=== PATIENT | female | born 1985 | race Caucasian/White ===

== ENCOUNTER 2017-02-19 04:38 | Inpatient (IN) | payer BC, MEDICAID ==
[2017-02-19] VITALS (20 sets, daily range): BP systolic 107–133; BP diastolic 58–96; PULSE 74–112; RESP 16–18; TEMP 97.7
[~2017-02-19] VITALS: Ht 165.1 cm; Wt 87.5 kg
--- NOTE | 2017-02-19 05:35 | PD ---
HPI Chief Complaint contractions Date Seen: Feb 19, 2017 Time Seen: 05:27 Travel History International Travel<30 Days: No Contact w/Intl Traveler<30Days: No Known Affected Area: No History of Present Illness HPI 31 yo at 39w 3d who arrives due to contractions that began 10pm last night. Became a little more frequent this morning. Denies ROM, vaginal bleeding. Good movement. Cervix was 3 cm 10 days ago. GBS negative. Patient has been given the OK to attempt a Para: 1 : 2 History Past Medical History Medical History: Denies Significant Hx Obstetric History Obstetric History Past Surgical History Narrative Surgical Family History Family History: Negative Social History Alcohol Use: No Tobacco Use: No Substance Abuse: No Review of Systems Except as stated in HPI: all other systems reviewed are Neg Physical Exam Narrative GENERAL: Well-nourished, well-developed patient. SKIN: Warm and dry. HEAD: Normocephalic and atraumatic. EYES: No scleral icterus. No injection or drainage. ENT: No nasal drainage noted. Mucous membranes pink. Airway patent. NECK: Supple, trachea midline. No JVD. CARDIOVASCULAR: Regular rate and rhythm without murmurs, gallops, or rubs. RESPIRATORY: Breath sounds equal bilaterally. No accessory muscle use. BREASTS: Bilateral exam showed no masses , no retractions, no nipple discharge. ABDOMEN/GI: Abdomen soft, non-tender, bowel sounds present, no rebound, no guarding Gravid to [38-] weeks size Fundal Height: [-] GENITOURINARY: External Genitalia: intact and normal in appearance BUS glands: [-nl] Cervix: [-mid] Dilatation: [-4-5] Effacement: [-90] Station: [--2] Presentation: [-vtx] Membranes: [intact] Uterine Contractions: [q10min-] FHT's: Category: [1-] Baseline: [-145] Reactive: [mod-] Variability: [-mod] Decels: [absent-] EXTREMITIES: No cyanosis or edema. BACK: Nontender without obvious deformity. No CVA tenderness. NEUROLOGICAL: Awake and alert. Motor and sensory grossly within normal limits. Five out of 5 muscle strength in all muscle groups. Normal speech. Data Data Vital Signs Reviewed: Yes [facility] Medical Record Reviewed: Yes Plan 31yo at 39-40 weeks, previous h/o here in labor For Dr Hines aware of admission Diagnosis Diagnosis: Primary Impression: 39 weeks gestation of Additional Impressions: Irregular uterine contractions Previous delivery affecting , antepartum Disposition: 01 DISCHARGE HOME Tarsha Narayanan MD Feb 19, 2017 05:35
[2017-02-19] MEDS ORDERED: LACTATED RINGER'S 1000 ML INJ 1,000 ML IV PRN (05:36)
[2017-02-19] MEDS ORDERED: LACTATED RINGER'S 1000 ML INJ 1,000 ML IV SCH (05:36)
[2017-02-19] MEDS ORDERED: PREN1CAP28 PO (05:44)
[2017-02-19] MEDS ORDERED: CITRIC ACID-SODIUM CITRATE LIQ 30 ML UDC PO SCH (05:45)
[2017-02-19] MEDS ORDERED: OXYTOCIN 30 UNITS-500ML PREMIX 500 ML IV ONE (05:45)
[2017-02-19] MEDS ORDERED: LIDOCAINE HCL 1% 50 ML VIAL I-DERMAL PRN (05:45)
[2017-02-19] MEDS ORDERED: LIDOCAINE HCL 1% 50 ML VIAL INFIL PRN (05:45)
[2017-02-19] MEDS ORDERED: SODIUM CHLORID 0.9% 500 ML INJ 500 ML IV PRN (05:45)
[2017-02-19] MEDS ORDERED: MINERAL OIL 10 ML VIAL TOPICAL PRN (05:45)
[2017-02-19] MEDS ORDERED: IRON27TA PO (05:47)
[2017-02-19 05:51] LABS: BASOPHIL # 0.1 TH/MM3 (0-0.2); BASOPHIL % 0.5 % (0.0-2.0); EOSINOPHIL # 0.1 TH/MM3 (0-0.4); EOSINOPHIL % 0.8 % (0.0-4.0); HEMATOCRIT 35.4 % (35.0-46.0); HEMO FLAGS DIFF FINAL; LYMPH % 19.3 % (9.0-44.0); LYMPHOCYTE # 2.4 TH/MM3 (1.0-4.8); MEAN CELL VOLUME 81.5 FL (80.0-100.0); MEAN CORPUSCULAR HGB CONC 33.1 % (32.0-36.0); MONO % 8.8 % (0.0-8.0); NEUT % 70.6 % (16.0-70.0); PLATELET COUNT 168 TH/MM3 (150-450); RED BLOOD COUNT 4.35 MIL/MM3 (4.00-5.30); RED CELL DISTRIBUTION WIDTH 19.6 % (11.6-17.2); WHITE BLOOD COUNT 12.7 TH/MM3 (4.0-11.0)
[2017-02-19 05:55] LABS: BLOOD, URINE NEG (NEG); GLUCOSE,URINE NEG (NEG); KETONE, URINE NEG (NEG); MUCUS URINE FEW /lpf (OCC); NITRITE,URINE NEG (NEG); PH, URINE 6.5 (5.0-8.5); SQUAMOUS EPITHELIAL CELL URINE 2 /hpf (0-5); URINE COLOR YELLOW (YELLW/STRAW)
[2017-02-19 05:56] LABS: COMMENT (UR) CATH-CULT NOT IND; CULTURE IF INDICATED CATH CULTURE NOT IND
[2017-02-19] MEDS ORDERED: SODIUM CHLOR 0.9% 1000 ML INJ 1,000 ML IV PRN (05:56)
[2017-02-19] MEDS ORDERED: fentaNYL 2MCG-BUPIV 0.125% INJ 100 ML ONE (06:18)
[2017-02-19] MEDS ORDERED: fentaNYL 2MCG-BUPIV 0.125% 100 ML EPIDURAL SCH (07:30)
[2017-02-19] MEDS ORDERED: DO NOT ADMINISTER ANTICOAGULANTS PRN (07:30)
[2017-02-19] MEDS ORDERED: ePHEDrine/NS 25 MG/5 ML SYR IV PRN (07:30)
[2017-02-19] MEDS ORDERED: NO SYSTEM NARCOTICS PRN (07:30)
[2017-02-19 09:21] LABS: RAPID PLASMA REAGIN SCREEN NON-REACTIVE (NON-REACTVE)
[2017-02-19] MEDS ORDERED: DOCUSATE SODIUM 50 MG/SENNA 8.6 MG TAB PO PRN (10:00)
[2017-02-19] MEDS ORDERED: WITCH HAZEL 50%/GLYCERIN 12.5% 40 PAD JAR TOPICAL PRN (10:00)
[2017-02-19] MEDS ORDERED: BENZOCAINE 20% TOPICAL SPRAY 60 ML CAN TOPICAL PRN (10:00)
[2017-02-19] MEDS ORDERED: ONDANSETRON ODT 4 MG TAB PO PRN (10:00)
[2017-02-19] MEDS ORDERED: ALUMINUM/MAGNESIUM/SIMETH 30 ML CUP PO PRN (10:00)
[2017-02-19] MEDS ORDERED: ZOLPIDEM TARTRATE 5 MG TAB PO PRN (10:00)
[2017-02-19] MEDS ORDERED: SODIUM CHLORIDE 0.9% FLUSH 10 ML FLUSH IV FLUSH PRN (10:00)
[2017-02-19] MEDS ORDERED: oxyCODONE/ACETAMINOPHEN 5 MG/325 MG TAB PO PRN ×2 (10:00)
--- NOTE | 2017-02-19 10:00 | PD.OB.DELI ---
Delivery Date: Feb 19, 2017 Anesthesia: Epidural Episiotomy: None Vaginal Delivery: Normal, Spontaneous, Presentation: Transverse lie (op left) Nuchal Cord: x1 Delayed cord clamping (45 sec): Yes : Male One Minute : 8 Five Minute : 8 Weight: 3335 gm Placenta: Spontaneous delivery, Intact, 3 vessel cord Laceration: Vaginal laceration Repair: Chromic running Deng Shaikh MD Feb 19, 2017 10:00
[2017-02-19] MEDS: IBUPROFEN 600 MG TAB PO PRN ×2 (11:16→17:59)
[2017-02-19] MEDS ORDERED: MEASLES, MUMPS, RUBELLA VACCINE 0.5 ML VIAL SQ ONE (16:00)
[2017-02-19] MEDS ORDERED: DIPHTH/TETANUS/ACEL PERTUSSIS (BOOSTER) 0.5 ML VIAL/PFS IM ONE (16:00)
[2017-02-19] MEDS: SODIUM CHLORIDE 0.65% NASAL SPRAY 45 ML BTL NASAL PRN (16:16)
[2017-02-19] MEDS: ACETAMINOPHEN 325 MG TAB PO PRN (20:08)
[2017-02-19] MEDS ORDERED: SODIUM CHLORIDE 0.9% FLUSH 10 ML FLUSH IV FLUSH SCH (21:00)
[2017-02-20] MEDS: IBUPROFEN 600 MG TAB PO PRN ×4 (00:38→23:17)
[2017-02-20] MEDS: ACETAMINOPHEN 325 MG TAB PO PRN ×4 (00:38→23:17)
[2017-02-20 08:00] VITALS: BP 114/69; PULSE 100; RESP 20; TEMP 97.6
[2017-02-20] MEDS: SODIUM CHLORIDE 0.65% NASAL SPRAY 45 ML BTL NASAL PRN (08:10)
--- NOTE | 2017-02-20 09:03 | HHI.OB ---
Subjective Post Day: 1 Remarks doing well post but grieving the diagnosis of possible Downs Syndrome Objective Vitals/I&O Vital Signs Date Time Temp Pulse Resp B/P Pulse Ox O2 Delivery O2 Flow Rate FiO2 02/20/17 08:00 97.6 02/20/17 08:00 100 20 114/69 02/19/17 20:00 97.7 02/19/17 20:00 78 16 111/68 02/19/17 12:25 97.7 88 18 133/76 02/19/17 11:10 18 02/19/17 11:01 82 125/70 02/19/17 10:54 18 02/19/17 10:46 74 120/70 02/19/17 10:32 18 02/19/17 10:30 76 109/66 02/19/17 10:22 75 107/70 02/19/17 09:59 86 126/96 02/19/17 09:57 18 Objective Remarks GENERAL: Well-nourished, well-developed patient. ABDOMEN/GI: Abdomen soft, non-tender. Fundus: Firm, non-tender at umbilicus. GENITOURINARY: Light to moderate bleeding. EXTREMITIES: No cyanosis or edema, non-tender, without signs of DVT. Medications and IVs Current Medications Medications (Trade) Dose Ordered Sig/Sarabjit Route Start Time Stop Time Status Last Admin Lactated Ringer's 1,000 ml @ 125 mls/hr Q8H IV 02/19/17 05:36 02/19/17 06:33 Lactated Ringer's 1,000 ml @ 3,000 mls/hr Q20M PRN IV 02/19/17 05:36 Sodium Chloride 500 ml @ 1,000 mls/hr ONCE PRN IV 02/19/17 05:45 (NS 1000 ml Inj) 1,000 ml @ 100 mls/hr Q10H PRN IV 02/19/17 05:56 Mineral Oil 10 ml 10 ml UNSCH PRN TOPICAL 02/19/17 05:45 (fentaNYL 2MCG-BUPIV 0.125% INJ) 100 ml @ 0 mls/hr TITRATE EPIDURAL 02/19/17 07:30 (NS Flush) 2 ml BID IV FLUSH 02/19/17 21:00 (NS Flush) 2 ml UNSCH PRN IV FLUSH 02/19/17 10:00 (Tylenol) 650 mg Q4H PRN PO 02/19/17 10:00 02/20/17 08:10 (Motrin) 600 mg Q6H PRN PO 02/19/17 10:00 02/20/17 08:10 (Percocet 5-325 Mg) 1 tab Q4H PRN PO 02/19/17 10:00 (Percocet 5-325 Mg) 2 tab Q4H PRN PO 02/19/17 10:00 (Americaine 20% Top Spr) 1 spray Q4H PRN TOPICAL 02/19/17 10:00 02/20/17 08:09 (Tucks Pads) 1 applic QID PRN TOPICAL 02/19/17 10:00 02/20/17 08:10 (Mattie-Colace) 2 tab Q12H PRN PO 02/19/17 10:00 (Ambien) 5 mg HS PRN PO 02/19/17 10:00 (Mag-Al Plus Susp Liq) 15 ml Q8H PRN PO 02/19/17 10:00 (Zofran Odt) 4 mg Q6H PRN PO 02/19/17 10:00 (Weld Dylan [place]) 2 spray Q4H PRN NASAL 02/19/17 14:45 02/20/17 08:10 Assessment/Plan Problem List: (1) , delivered Assessment and Plan dc in Deng Shaikh MD Feb 20, 2017 09:03
[2017-02-20] MEDS ORDERED: OXYC1TAB63 PO (09:04)
--- NOTE | 2017-02-20 09:04 | HHI.DCPOC ---
Discharge Care Plan Diagnosis: (1) , delivered Report Symptoms to Your Doctor -Temperature above 100.5 degrees -Redness, of incision or excessive or foul smelling drainage -Unusual pain or calf pain -Increased vaginal bleeding -Painful or difficulty urinating -Feelings of extreme sadness or anxiety after 2 weeks Goals to Promote Your Health * To prevent worsening of your condition and complications * To maintain your health at the optimal level Directions to Meet Your Goals Take your medications as prescribed Follow your dietary instruction Follow activity as directed Ensure plenty of rest for recovery Drink fluids for hydration Keep your appointments as scheduled Take your immunizations and boosters as scheduled If your symptoms worsen call your PCP, if no PCP go to Urgent Care Center or Emergency Room Smoking is Dangerous to Your Health. Avoid second hand smoke Call the 24-hour crisis hotline for domestic abuse at Deng Shaikh MD Feb 20, 2017 09:04
[2017-02-20] MEDS: PSEUDOEPHEDRINE HCL 30 MG TAB PO PRN ×2 (11:59→23:17)
[2017-02-20 23:11] VITALS: BP 127/77; PULSE 76; RESP 16; TEMP 98.5
[2017-02-21] MEDS: IBUPROFEN 600 MG TAB PO PRN (10:49)
[2017-02-21] MEDS: ACETAMINOPHEN 325 MG TAB PO PRN (10:49)
[2017-02-21 10:50] VITALS: BP 121/77; PULSE 81; RESP 18; TEMP 97.7
[2017-02-21] MEDS: PSEUDOEPHEDRINE HCL 30 MG TAB PO PRN (10:50)
== END 2017-02-21 14:02 | disposition home or self-care (01) | DRG 775 ==
LOC: HOBED 04:38 → H2EB 05:31 → H1EA 12:17
PROVIDERS: ADMIT Obstetrics & Gynecology; ATTEND Obstetrics & Gynecology
PROC: 10E0XZZ Delivery of Products of Conception, External Approach (ICD-10-PCS; principal; 2017-02-19)
PROC: 0HQ9XZZ Repair Perineum Skin, External Approach (ICD-10-PCS; 2017-02-19)
PROC: 3E0S3CZ (ICD-10-PCS; 2017-02-19)
PROC: 00HU33Z Insertion of Infusion Device into Spinal Canal, Percutaneous Approach (ICD-10-PCS; 2017-02-19)
DX: O34.219 Maternal care for unspecified type scar from previous cesarean delivery (principal); O32.2XX0 Maternal care for transverse and oblique lie, not applicable or unspecified; O70.0 First degree perineal laceration during delivery; Z37.0 Single live birth; Z3A.39 39 weeks gestation of pregnancy
CPT/HCPCS: 81001; 85025; 86592; 86900; 86901; 90715; 99285; J7120